=== PATIENT | female | born 1975 | race Caucasian/White ===

== ENCOUNTER 2023-12-24 23:42 | Emergency (ER) | payer MEDICAID ==
[~2023-12-24] VITALS: Ht 160 cm; Wt 72.0 kg
[~2023-12-24 23:42] MED LIST: MULT-785 PO; ZOF4T PO
[2023-12-25] MEDS: ketorolac trometh. 30mg/ml inj. IV ONE (01:30)
[2023-12-25] MEDS ORDERED: vancomycin inj 1,000 MG in normal saline 250ml IV soln 250 ML IV ONE (01:30)
[2023-12-25] MEDS ORDERED: iohexol 300mg/ml 100ml inj. ONE (01:45)
[2023-12-25] MEDS: ketorolac tromethamine 15mg/ml inj. IV ONE (02:08)
[2023-12-25] MEDS: vancomycin/NS 1 GM ADD-VANTAGE 250 ML IV ONE (02:08)
[2023-12-25] MEDS: fentaNYL/PF 50MCG/1 ML 2ML syringe IV ONE (02:13)
[2023-12-25 02:17] LABS: BASOPHILS # (AUTO) 0.1 X10'3 (0-0.2); BASOPHILS % (AUTO) 0.7 % (0-1); EOSINOPHILS # (AUTO) 0.1 X10'3 (0-0.9); HEMATOCRIT 34.9 % (35.0-45.0); HEMOGLOBIN 11.6 g/dl (12.0-16.0); LYMPHOCYTES # (AUTO) 1.7 X10'3 (1.1-4.8); LYMPHOCYTES % (AUTO) 15.9 % (21-51); MEAN CORPUSCULAR HEMOGLOBIN 28.8 PG (27.0-31.0); MEAN CORPUSCULAR HGB CONC 33.1 g/dL (33.0-36.5); MEAN CORPUSCULAR VOLUME 86.9 FL (78-98); MEAN PLATELET VOLUME 6.5 FL (7.4-10.4); MONOCYTES # (AUTO) 0.9 X10'3 (0-0.9); MONOCYTES % (AUTO) 8.3 % (2-12); NEUTROPHILS # (AUTO) 8.2 X10'3 (1.8-7.7); NEUTROPHILS % (AUTO) 74.1 % (42-75); PLATELET COUNT 331 X10'3 (140-440); RED BLOOD COUNT 4.02 X10'6 (4.20-5.60); RED CELL DISTRIBUTION WIDTH 13.5 % (11.5-14.5)
[2023-12-25 02:25] LABS: ALBUMIN 3.2 G/DL (3.4-5.0); ANION GAP 7 (8-16); BLOOD UREA NITROGEN 8 MG/DL (7-18); BUN/CREATININE RATIO 10.1 (10.0-20.0); CALCIUM 8.6 MG/DL (8.5-10.1); CHLORIDE 102 MMOL/L (99-107); CREATININE 0.79 MG/DL (0.40-0.90); GLUCOSE 123 MG/DL (70-104); MAGNESIUM 1.7 MG/DL (1.5-2.4); POTASSIUM 3.6 MMOL/L (3.5-5.1); SODIUM 136 MMOL/L (135-145); TOTAL CARBON DIOXIDE 26.7 MMOL/L (24-32); eCRCL 74 ML/MIN; eGFR 78 ML/MIN
[2023-12-25] MEDS: acetaminophen 325mg tablet PO ONE (02:32)
[2023-12-25] MEDS: gabapentin 400mg capsule PO ONE (02:32)
[2023-12-25 03:03] LABS: BILIRUBIN,URINE NEGATIVE (Neg); CLARITY,URINE CLOUDY (Clear); COLOR,URINE YELLOW (Yellow); GLUCOSE, URINE NEGATIVE (Neg); KETONES,URINE NEGATIVE (Neg); LEUKOCYTE ESTERASE ,URINE SMALL (Neg); NITRITES, URINE POSITIVE (Neg); OCCULT BLOOD,URINE NEGATIVE (Neg); PROTEIN,URINE NEGATIVE (Neg); UROBILINOGEN,URINE 0.2 E.U/dL (0.2-1.0)
[2023-12-25 03:04] LABS: URINE HCG NEGATIVE (NEG)
[2023-12-25 03:05] LABS: UA COLLECTION TYPE URINAL
[2023-12-25 03:13] LABS: BACTERIA,URINE 4+ /HPF (Neg); MUCUS STRANDS FEW /LPF (Neg); RBC,URINE 0-2 /HPF (0-2); RENAL CELLS, URINE MODERATE /HPF; SQUAMOUS EPITHELIAL CELL,UR MODERATE /LPF (FEW); TRANSITIONAL EPI CELLS,URINE FEW /HPF
[2023-12-25 03:20] LABS: URINE AMPHETAMINE SCREEN POSITIVE (Neg); URINE BARBITUATE SCREEN NEGATIVE (Neg); URINE BENZODIAZEPINES SCREEN NEGATIVE (Neg); URINE CANNABINOID SCREEN POSITIVE (Neg); URINE COCAINE SCREEN NEGATIVE (Neg); URINE METHADONE SCREEN NEGATIVE (Neg); URINE OPIATE SCREEN NEGATIVE (Neg); URINE PHENCYCLIDINE SCREEN NEGATIVE (Neg)
[2023-12-25] MEDS ORDERED: AMOX-115 PO (05:10)
[2023-12-25] MEDS ORDERED: HYDR-3965 PO (05:10)
[2023-12-25] MEDS: amox tr/potassium clavulanate 500mg/125mg TAB PO ONE (05:20)
[2023-12-25 05:31] VITALS: BP 142/79; PULSE 81; RESP 12; TEMP 98.3; O2SAT 96
== END 2023-12-25 05:33 | disposition home or self-care (01) ==
LOC: ER 23:42
DX: K04.7 Periapical abscess without sinus (principal); J45.909 Unspecified asthma, uncomplicated; F12.90 Cannabis use, unspecified, uncomplicated; F15.90 Other stimulant use, unspecified, uncomplicated; Z88.5 Allergy status to narcotic agent; Z79.2 Long term (current) use of antibiotics; Z79.899 Other long term (current) drug therapy; Z98.890 Other specified postprocedural states
CPT/HCPCS: 36415; 70487; 80048; 80305; 81001; 81025; 83605; 83735; 84145; 85025; 87040; 87088; 96365; 96375; 99285; J1885; J3010; J3370; J3490; Q9967

== ENCOUNTER 2023-12-28 22:33 | Emergency (ER) | payer MEDICAID ==
[~2023-12-28] VITALS: Ht 160 cm; Wt 71.9 kg
[~2023-12-28 22:33] MED LIST changes: +AMOX-115 PO; +HYDR-3965 PO
[2023-12-28 22:35] VITALS: TEMP 98.2
[2023-12-28 23:10] LABS: BASOPHILS % (AUTO) 0.4 % (0-1); EOSINOPHILS # (AUTO) 0.1 X10'3 (0-0.9); EOSINOPHILS % (AUTO) 1.2 % (0-6); HEMATOCRIT 38.8 % (35.0-45.0); HEMOGLOBIN 13.1 g/dl (12.0-16.0); LYMPHOCYTES # (AUTO) 2.1 X10'3 (1.1-4.8); LYMPHOCYTES % (AUTO) 23.4 % (21-51); MEAN CORPUSCULAR HEMOGLOBIN 28.9 PG (27.0-31.0); MEAN CORPUSCULAR HGB CONC 33.8 g/dL (33.0-36.5); MEAN CORPUSCULAR VOLUME 85.5 FL (78-98); MEAN PLATELET VOLUME 6.2 FL (7.4-10.4); MONOCYTES # (AUTO) 0.8 X10'3 (0-0.9); MONOCYTES % (AUTO) 8.3 % (2-12); NEUTROPHILS # (AUTO) 6.1 X10'3 (1.8-7.7); NEUTROPHILS % (AUTO) 66.7 % (42-75); PLATELET COUNT 497 X10'3 (140-440); RED BLOOD COUNT 4.54 X10'6 (4.20-5.60); RED CELL DISTRIBUTION WIDTH 13.6 % (11.5-14.5); WHITE BLOOD COUNT 9.1 X10'3 (4.5-11.0)
[2023-12-28 23:43] LABS: BILIRUBIN,URINE SMALL (Neg); CLARITY,URINE TURBID (Clear); COLOR,URINE YELLOW (Yellow); GLUCOSE, URINE NEGATIVE (Neg); KETONES,URINE NEGATIVE (Neg); LEUKOCYTE ESTERASE ,URINE NEGATIVE (Neg); NITRITES, URINE NEGATIVE (Neg); OCCULT BLOOD,URINE NEGATIVE (Neg); PH,URINE 5.5 (4.8-8.0); PROTEIN,URINE NEGATIVE (Neg); UROBILINOGEN,URINE 0.2 E.U/dL (0.2-1.0)
[2023-12-28 23:48] LABS: UA COLLECTION TYPE CLN CATCH MIDSTREAM; URINE HCG NEGATIVE (NEG)
[2023-12-28 23:59] LABS: SQUAMOUS EPITHELIAL CELL,UR MANY /LPF (FEW)
[2023-12-29 00:02] LABS: BACTERIA,URINE 2+ /HPF (Neg); MUCUS STRANDS MANY /LPF (Neg); RBC,URINE NONE SEEN /HPF (0-2); WBC,URINE 20-30 /HPF (0-4)
[2023-12-29 00:03] LABS: TRICHOMONAS,URINE MOD /HPF (NEGATIVE)
[2023-12-29 00:04] LABS: CAL OXALATE CRYSTALS 4+ /HPF (NEGATIVE)
[2023-12-29 00:48] LABS: ALANINE AMINOTRANSFERASE 17 U/L (12-78); ALBUMIN 3.5 G/DL (3.4-5.0); ALBUMIN/GLOBULIN RATIO 0.8 (1.1-1.5); ALKALINE PHOSPHATASE 86 IU/L (46-116); ANION GAP 9 (8-16); ASPARTATE AMINO TRANSFERASE 10 U/L (10-37); BILIRUBIN,TOTAL 0.2 MG/DL (0.1-1.0); BLOOD UREA NITROGEN 10 MG/DL (7-18); CALCIUM 9.2 MG/DL (8.5-10.1); CHLORIDE 101 MMOL/L (99-107); CREATININE 0.83 MG/DL (0.40-0.90); GLUCOSE 108 MG/DL (70-104); LIPASE 29 U/L (16-77); POTASSIUM 3.9 MMOL/L (3.5-5.1); SODIUM 135 MMOL/L (135-145); TOTAL CARBON DIOXIDE 25.2 MMOL/L (24-32); TOTAL PROTEIN 7.8 G/DL (6.4-8.2); eCRCL 70 ML/MIN; eGFR 74 ML/MIN
[2023-12-29] MEDS ORDERED: CEPH-585 PO (02:39)
[2023-12-29] MEDS: CefTRIAXone 1000mg IM Kit (w/lidocaine diluent) IM ONE (03:27)
[2023-12-29 03:41] VITALS: BP 130/57; PULSE 88; RESP 14; O2SAT 98
== END 2023-12-29 03:41 | disposition home or self-care (01) ==
LOC: ER 22:34
DX: N39.0 Urinary tract infection, site not specified (principal); E86.0 Dehydration; J45.909 Unspecified asthma, uncomplicated; F12.90 Cannabis use, unspecified, uncomplicated; F15.90 Other stimulant use, unspecified, uncomplicated; Z88.5 Allergy status to narcotic agent; Z79.2 Long term (current) use of antibiotics; Z79.899 Other long term (current) drug therapy; Z98.890 Other specified postprocedural states; Z98.51 Tubal ligation status
CPT/HCPCS: 36415; 74176; 80053; 81001; 81025; 83690; 85025; 96372; 99285; J0696

== ENCOUNTER 2025-03-14 21:49 | Emergency (ER) | payer MEDICAID ==
[~2025-03-14] VITALS: Ht 160 cm; Wt 74.1 kg
[~2025-03-14 21:49] MED LIST changes: -AMOX-115 PO; -HYDR-3965 PO
[2025-03-14 22:10] VITALS: BP 119/52; PULSE 88; RESP 20; O2SAT 100
[2025-03-14] MEDS ORDERED: NAPR-56 PO (23:32)
[2025-03-14] MEDS ORDERED: CEPH-585 PO (23:32)
[2025-03-14] MEDS: ibuprofen tablet 400 MG TABLET PO ONE (23:34)
--- NOTE | 2025-03-14 23:36 | Physician Documentation ---
History of Present Illness ~ Chief Complaint: Bite-insect Stated Complaint: STUNG BY WASP Time Seen by MD: 23:10 OK to notify your PCP?: Yes Primary Medical Doctor: ROSITA FAM Source: patient Mode of Arrival: POV Exam Limitations: no limitations HPI 49-year-old female presents to the emergency department after being bitten by a yellow jacket to the inner portion of her right upper arm while she was out picking blackberries about 3:00 p.m. yesterday. She is having pain, swelling, warmth and redness to this portion of her arm and the swelling appears to be migrating down her arm. She tried using calamine lotion as well as taking 50 mg of Benadryl around 1:00 p.m. today. Tetanus within 5 years?: Yes Medication Reconciliation Allergies: Coded Allergies: hydromorphone HCl (Verified Allergy, Unknown, 01/05/17) tramadol (Verified Allergy, Unknown, 01/05/17) Scheduled Cephalexin*Monohydrate* (Keflex*), 1 CAP PO Q6H Multivitamins* (Multivitamin*), 1 EACH PO DAILY, (Reported) Naproxen (Naproxen), 1 TAB PO Q12H Ondansetron ODT* (Zofran ODT*), 4 MG PO Q6H Past Medical History Past Medical History: Asthma, UTI, Thyroid (unspecified), Chronic Pain, Chronic Back Pain, Anxiety, Depression Past Surgical History: appendectomy, , tubal ligation Alcohol Use: Occasionally Drug Use: marijuana, methamphetamine Lives with: Family, Other Lives In: Home Occupation: unemployed Review of Systems All Other Systems at this time: Reviewed and Negative Physical Exam Vital Signs: RN Vital Signs have been reviewed: Yes, Temperature: 97.7, Source: Temporal, Heart Rate: 88, Respiratory Rate: 20, BP: 119/52, Pulse Oximetry: 100, Weight: 74.090 Pulse Oximetry Reflects: adequate oxygenation Physical Exam General: Alert, no apparent distress. HEENT: PERRL, EOMI, no injection, moist mucous membranes. Neck: Full range of motion. Respiratory: Lungs clear, no respiratory distress. Chest: No accessory muscle use. Cardiovascular: Regular rate and rhythm, no murmurs. Gastrointestinal: Soft, nontender, nondistended. Bowels sounds present. Extremities: Edema, warmth, pain and erythema to inner portion of to right u pper arm. She does have some swelling that migrated down around the elbow which has decreased her range of motion. Good range motion of right hand, fingers and wrist with good pulses, good CSM, good sensation to right arm. Neurologic: Oriented x4. Psychiatric: Normal mood and affect. Skin: Normal color, warm and dry. No edema, no ecchymosis. Progress Results/Orders Reviewed/noted all lab results: Yes Results/Orders Completed Orders - MAGY CONTRERAS [employer] Cephalexin Capsule (Keflex Capsule) (03/14/25 23:25) Acetaminophen 325mg Tablet (Tylenol Tabl (03/14/25 23:25) Ibuprofen Tablet (Motrin Tablet) (03/14/25 23:25) Medications Received in ER Medications (Trade) Dose Ordered Sig/Susannah Route PRN Reason Start Time Stop Time Status Last Admin Dose Admin (Keflex capsule) 500 mg ONCE ONCE PO 03/14/25 23:25 03/14/25 23:29 DC 03/14/25 23:34 500 MG (Tylenol tablet) 650 mg ONCE ONCE PO 03/14/25 23:25 03/14/25 23:29 DC 03/14/25 23:34 650 MG (Motrin tablet) 400 mg ONCE ONCE PO 03/14/25 23:25 03/14/25 23:29 DC 03/14/25 23:34 400 MG Vital Signs 03/14/25 03/14/25 22:10 23:37 Temp 97.7 97.7 Pulse 88 Resp 20 B/P (MAP) 119/52 Pulse Ox 100 Medical Decision Making Additional info obtained from: old records, family Findings 49-year-old female with cellulitis from an insect bite to her right upper arm which occurred yesterday around 3:00 p.m. I started her on Keflex 1st dose given in the department as well as gave her some Tylenol and ibuprofen. She did take some Benadryl already and tried using some calamine lotion with no relief to the swelling. I sent a prescription for naproxen to her pharmacy as well. She is allergic to tramadol and Dilaudid so I opted not to give her any opiate medications. We discussed that she needs to keep her arm elevated as this will help reduce the swelling. Cool compresses can also be helpful. She does not have any comorbidities or history of MRSA, but we discussed that if this does not improve with the antibiotics that she needs to return immediately for possible IV abx and admission. She agrees to this plan. Differential Dx:Considerations: Include: Allergic reaction, Anaphylaxis, Hematoma, Neurovascular injury, Retained foreign body Departure Disposition: HOME / SELF CARE / HOMELESS Impression: Primary Impression: Cellulitis Condition: Stable Discharge Instructions: Cellulitis, Adult Additional Instructions: Follow up with her primary care provider and return back here for any new or worsening symptoms. Referrals: NO PRIMARY CARE PROVIDER (PCP) Prescriptions Naproxen (Naproxen) 500 Mg Tablet 1 TAB PO Q12H, #20 TAB Prov: MAGY CONTRERAS 03/14/25 Cephalexin*Monohydrate* (Keflex*) 500 Mg Capsule 1 CAP PO Q6H for 10 Days, #40 CAP Prov: MAGY CONTRERAS 03/14/25 Education Educated: Patient Educated regarding: diagnosis, treatment, prognosis, need for follow up Additional Comment Medical Screen Exam This patient recieved a medical screening examination. After reviewing the individual's medical complaints with presenting symptoms and performing an appropriate physical examination, it was determined that no immediate life- threatening emergency medical condition is present. This individual is also not a women having contractions. Signature Scribe Signature: . Attestation: Scribed for Magy Contreras by Magy Estes NP . 03/15/25 01:46 Parts of this note were created using [employer] voice recognition software program. While efforts were made to correct any mistakes made by this voice recognition software program, nonsensical phrases may remain in this note. In addition, there may be errors and syntax, grammar, content and spelling. MAGY CONTRERAS Mar 14, 2025 23:36
[2025-03-14 23:37] VITALS: TEMP 97.7
== END 2025-03-14 23:39 | disposition home or self-care (01) ==
LOC: ER 21:50
DX: L03.113 Cellulitis of right upper limb (principal); J45.909 Unspecified asthma, uncomplicated; F12.90 Cannabis use, unspecified, uncomplicated; F15.90 Other stimulant use, unspecified, uncomplicated; F32.A Depression, unspecified; Z88.5 Allergy status to narcotic agent; Z88.8 Allergy status to other drugs, medicaments and biological substances; Z87.440 Personal history of urinary (tract) infections; Z90.49 Acquired absence of other specified parts of digestive tract; Z98.51 Tubal ligation status
CPT/HCPCS: 99284